=== PATIENT | male | born 1985 | race African-American/Black ===

== ENCOUNTER 2017-04-07 10:38 | Emergency (ER) | payer SELFPAY ==
[~2017-04-07] VITALS: Ht 175.3 cm; Wt 108.9 kg
[2017-04-07 11:04] VITALS: BP 161/111
[2017-04-07] MEDS ORDERED: DIAZ5TAB PO (11:26)
[2017-04-07] MEDS ORDERED: NAPR500T PO (11:26)
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
== END 2017-04-07 11:38 | disposition home or self-care (01) ==
LOC: ER 10:38
DX: S93.401A Sprain of unspecified ligament of right ankle, initial encounter (principal); S00.83XA Contusion of other part of head, initial encounter; S80.212A Abrasion, left knee, initial encounter; F12.10 Cannabis abuse, uncomplicated; F17.210 Nicotine dependence, cigarettes, uncomplicated; I10 Essential (primary) hypertension; V43.62XA Car passenger injured in collision with other type car in traffic accident, initial encounter; Y93.89 Activity, other specified; Y92.410 Unspecified street and highway as the place of occurrence of the external cause; Y99.8 Other external cause status
CPT/HCPCS: 99283

== ENCOUNTER 2018-09-02 10:13 | Emergency (ER) | payer OTHER ==
[~2018-09-02] VITALS: Ht 175.3 cm; Wt 145.6 kg
[~2018-09-02 10:13] MED LIST: DIAZ5TAB PO; NAPR-683 PO
[2018-09-02 10:38] VITALS: BP 184/127
[2018-09-02] MEDS ORDERED: NAPR-514 PO (10:47)
[2018-09-02] MEDS ORDERED: CYCL10TA2 PO (10:47)
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
== END 2018-09-02 11:06 | disposition home or self-care (01) ==
LOC: ER 10:13
DX: M54.5 Low back pain (principal); I10 Essential (primary) hypertension; V49.49XA Driver injured in collision with other motor vehicles in traffic accident, initial encounter; Y93.I9 Activity, other involving external motion; Y92.89 Other specified places as the place of occurrence of the external cause; Y99.8 Other external cause status
CPT/HCPCS: 99283